=== PATIENT | female | born 1950 ===

== ENCOUNTER 2018-03-03 16:27 | Observation (INO) | payer MEDICARE ==
[2018-03-03 17:22] LABS: BASO % 0.7 % (0.0-2.0); EOS # 0.1 K/uL (0.0-0.7); EOS % 1.5 % (0.0-4.0); HEMOGLOBIN 14.3 g/dL (11.0-16.0); LYMPH # 1.2 K/uL (1.0-4.3); LYMPH % 24.7 % (20.0-40.0); MEAN CELL VOLUME 91.1 fL (81.0-99.0); MEAN CORPUSCULAR HEMOGLOBIN 31.7 pg (27.0-31.0); MEAN CORPUSCULAR HGB CONC 34.8 g/dL (33.0-37.0); MEAN PLATELET VOLUME 10.4 fL (7.2-11.7); MONO # 0.3 K/uL (0.0-0.8); MONO % 5.8 % (0.0-10.0); NEUT # 3.4 K/uL (1.8-7.0); NEUT % 67.3 % (50.0-75.0); NRBC % 0.1 % (0.0-2.0); RBC 4.52 Mil/uL (3.80-5.20); RED CELL DISTRIBUTION WIDTH 13.8 % (11.5-14.5)
[2018-03-03 17:36] LABS: ALB/GLOB RATIO 1.4 (1.0-2.1); ALBUMIN 4.4 g/dL (3.5-5.0); ALT/SGPT 42 U/L (9-52); AST/SGOT 27 U/L (14-36); BLOOD UREA NITROGEN 16 mg/dL (7-17); CALCIUM 9.9 mg/dl (8.6-10.4); GFR AFRICAN-AMERICAN > 60; GFR NON-AFRICAN AMERICAN > 60
--- NOTE | 2018-03-03 18:05 | RAD ---
Chest x-ray single frontal view History: Infiltrate. Comparison: 03/03/2018 Findings: Mild venous congestion. Patchy increased markings at the left lung base. Clinical correlation. Tortuous ectatic aorta. Mild cardiomegaly. Degenerative changes in the spine and shoulders. Impression: Mild venous congestion. Patchy increased markings at the left lung base. Clinical correlation. Tortuous ectatic aorta. Mild cardiomegaly.
--- NOTE | 2018-03-03 19:23 | C.PDOC ---
History Of Present Illness 67 y/o female presents to ED c/o episode of lightheadedness, and dizziness half an hour prior to arrival. Notes she was walking down the steps when she suddenly felt lightheaded and had to sit down. Denies any type of pain, shortness of breath, or fever. Denies recent cardiac work up. Chief Complaint (Nursing): Dizziness/Lightheaded History Per: Patient History/Exam Limitations: no limitations Past Medical History Reviewed: Historical Data, Nursing Documentation, Vital Signs Vital Signs: Last Vital Signs Temp 98.6 F 03/03/18 16:46 Pulse 63 03/03/18 20:22 Resp 16 03/03/18 20:22 BP 143/78 03/03/18 20:22 Pulse Ox 98 03/03/18 20:22 - Medical History PMH: HTN Family History: States: Unknown Family Hx - Social History Hx Alcohol Use: No Hx Substance Use: No - Immunization History Hx Tetanus Toxoid Vaccination: No Hx Influenza Vaccination: No Hx Pneumococcal Vaccination: No Review Of Systems Except As Marked, All Systems Reviewed And Found Negative. Constitutional: Negative for: Fever, Chills Eyes: Negative for: Vision Change Cardiovascular: Positive for: Light Headedness. Negative for: Chest Pain, Palpitations Respiratory: Negative for: Cough, Shortness of Breath Gastrointestinal: Negative for: Nausea, Vomiting, Abdominal Pain Neurological: Positive for: Dizziness. Negative for: Weakness, Numbness, Headache Physical Exam - Physical Exam Appears: Non-toxic, No Acute Distress Skin: Normal Color, Warm, Dry Head: Atraumatic, Normacephalic Eye(s): bilateral: Normal Inspection Oral Mucosa: Moist Neck: Supple Cardiovascular: Rhythm Regular Respiratory: Normal Breath Sounds, No Rales, No Rhonchi, No Wheezing Gastrointestinal/Abdominal: Soft, No Tenderness Extremity: Normal ROM Neurological/Psych: Oriented x3, Normal Speech, Normal Cognition ED Course And Treatment - Laboratory Results Result Diagrams: 03/03/18 17:18 03/03/18 17:18 ECG: Interpreted By Me, Viewed By Me ECG Rhythm: Sinus Bradycardia ECG Interpretation: No Acute Changes Rate From EC (bpm) O2 Sat by Pulse Oximetry: 98 (RA) Pulse Ox Interpretation: Normal Medical Decision Making Medical Decision Making: Plan: Blood work CXR EKG Head CT Meclizine Case discussed with Dr. Toure who agrees upon Tele Obs admission. Disposition - Disposition Disposition Time: 19:00 Condition: STABLE - Clinical Impression Clinical Impression: Dizziness, Near syncope - Scribe Statement The provider has reviewed the documentation as recorded by the Scribe KP All medical record entries made by the Scribe were at my direction and personally dictated by me. I have reviewed the chart and agree that the record accurately reflects my personal performance of the history, physical exam, medical decision making, and the department course for this patient. I have also personally directed, reviewed, and agree with the discharge instructions and disposition.
[2018-03-03 20:16] LABS: PROTHROMBIN TIME 11.3 SECONDS (9.7-12.2)
--- NOTE | 2018-03-03 20:52 | CP.PCM.HP ---
History of Present Illness - History of Present Illness History of Present Illness: COMPREHENSIVE HISTORY & PHYSICAL EXAM Patient is admitted for syncopal episode. HPI Patient had an uneventful day prior to admission. While walking on the street patient suddenly felt weak and tired and had a near syncopal episode patient had no definite seizures. Patient has no previous history of seizures. Patient with history of hypertension and takes medication. There is no history of coronary artery disease severe angina or CHF in the past there is no history of hypercalcemia. PAST HIST. PERSONAL HIST: Smoking. N Alcohol. N Allergy N Travel_- . FAMILY HIST : ROS : Constitutional: Negative for weight change, chills, night sweats, fatigue and usage of assist device. Eyes: Negative for redness, swelling, itching, discharge, vision changes, blurry vision, double vision, glaucoma, cataracts, Ears: Negative for hearing loss, ringing, , tinnitus, vertigo Nose: Negative for rhinorrhea, stuffiness, sniffing, itching, postnasal drip, discoloration, nasal congestion and epistaxis. Throat: Negative for throat clearing, sore throat, hoarseness, difficulty swallowing and difficulty speaking. Respiratory: Negative for cough, , sputum production, chest tightness, wheezing, pleuritic chest pain ,daytime somnolence, chronic cough, hemoptysis, snoring at night, Cardiovascular: Negative for chest pain, palpitations, orthopnea, PND, Edema of legs, leg cramps, angina, claudication, , irregular heartbeat, Neurology: Negative for irritability, muscle weakness, numbness and tingling, seizures, tremors, migraines, slurred speech, memory loss, mood changes, recurrent headaches Gastrointestinal: Negative for difficulty swallowing, diarrhea, constipation, black stools, rectal bleeding, nausea, flatulence, reflux, poor appetite, changes in bowel habits, abdominal pain Genitourinary: Negative for frequent urination, hematuria, discharge, incontinence, urinary retention, frequent UTI, Psychiatric: Negative for depression, anxiety/panic, suicidal tendencies, Musculoskeletal: Negative for swollen joints, back pain, , neck pain, morning stiffness of joints, . Skin: Negative for rash, ulcers, itching, dry skin and pigmented lesions. P/E: Constitutional: Appears stated age and in no apparent distress. Head: Normocephalic. Ears: External ear canals patent without inflammation. Tympanic membranes intact with normal light reflex and landmark. Eyes: Pupils are central, bilaterally equal, symmetrical and reacts to light with normal movements and no icterus or pallor. Nose: External nares are patent. Mucosa is pink Mouth-Throat: Good general appearance and condition. No post-pharyngeal/oropharyngeal erythema and tonsillar hypertrophy. Good dental hygiene. Neck-Lymphatic: Neck is supple with normal ROM, no thyromegaly, lymph nodes or masses. JVD is normal with no carotid bruit. Lungs: Clear to percussion and auscultation with bilateral normal air entry. Cardiovascular: S1 and S2 are normal with no murmurs, gallops and rub. GI Exam: No hepatomegaly. Abdomen is soft and non-tender. No Organomegaly , masses or hernias are evident and bowel sounds are normal and active. Neurology: Higher function and all cranial nerves intact, with no gross motor or sensory deficit. Superficial and deep reflexes are normal with downwards planters. No cerebellar deficit with normal gait. Musculoskeletal: No tender spots with normal curvature of the spine with no swelling or restricted ROM of the small and large joints. Extremities: Homans sign absent. Intact pulses with no pitting edema, calf tenderness or skin color changes. Skin: No rash, eruptions or abnormal skin pigmentation LAB/RADIOLOGY: ASSESMENT : Syncopal episode etiology to be determined. Hypertension PLAN: See orders Present on Admission - Present on Admission Any Indicators Present on Admission: No Past Patient History - Past Social History Smoking Status: Never Smoked - CARDIAC Hx Hypertension: Yes - PSYCHIATRIC Hx Substance Use: No - SURGICAL HISTORY Hx Surgeries: Yes Hx Orthopedic Surgery: Yes - ANESTHESIA Hx Anesthesia: Yes Hx Anesthesia Reactions: No Meds Allergies/Adverse Reactions: Allergies Allergy/AdvReac Type Severity Reaction Status Date / Time No Known Allergies Allergy Verified 03/03/18 16:51 Results - Vital Signs Recent Vital Signs: Last Vital Signs Temp 98.6 F 03/03/18 16:46 Pulse 63 03/03/18 20:22 Resp 16 03/03/18 20:22 BP 143/78 03/03/18 20:22 Pulse Ox 98 03/03/18 20:22 - Labs Result Diagrams: 03/04/18 04:25 03/04/18 04:25 Labs: Laboratory Results - last 24 hr 03/03/18 03/03/18 03/03/18 17:18 17:18 19:55 WBC 5.0 RBC 4.52 Hgb 14.3 Hct 41.2 MCV 91.1 MCH 31.7 H MCHC 34.8 RDW 13.8 Plt Count 153 MPV 10.4 Neut % (Auto) 67.3 Lymph % (Auto) 24.7 [place] % (Auto) 5.8 Eos % (Auto) 1.5 Baso % (Auto) 0.7 Neut # (Auto) 3.4 Lymph # (Auto) 1.2 [place] # (Auto) 0.3 Eos # (Auto) 0.1 Baso # (Auto) 0.0 PT 11.3 INR 1.0 APTT 31 Sodium 143 Potassium 3.7 Chloride 104 Carbon Dioxide 27 Anion Gap 17 BUN 16 Creatinine 0.9 Est GFR ( Amer) > 60 Est GFR (Non-Af Amer) > 60 Random Glucose 124 H Calcium 9.9 Total Bilirubin 0.3 AST 27 ALT 42 Alkaline Phosphatase 51 Troponin I < 0.0120 Total Protein 7.5 Albumin 4.4 Globulin 3.1 Albumin/Globulin Ratio 1.4
[2018-03-04 04:28] LABS: BASO % 0.9 % (0.0-2.0); EOS # 0.1 K/uL (0.0-0.7); EOS % 1.6 % (0.0-4.0); HEMOGLOBIN 13.2 g/dL (11.0-16.0); LYMPH # 1.7 K/uL (1.0-4.3); LYMPH % 33.5 % (20.0-40.0); MEAN CELL VOLUME 90.7 fL (81.0-99.0); MEAN CORPUSCULAR HEMOGLOBIN 30.9 pg (27.0-31.0); MEAN PLATELET VOLUME 10.6 fL (7.2-11.7); MONO # 0.4 K/uL (0.0-0.8); NEUT # 2.9 K/uL (1.8-7.0); NRBC % 0.1 % (0.0-2.0); RBC 4.27 Mil/uL (3.80-5.20); RED CELL DISTRIBUTION WIDTH 13.8 % (11.5-14.5); WHITE BLOOD COUNT 5.1 K/uL (4.8-10.8)
[2018-03-04 05:29] LABS: ALB/GLOB RATIO 1.3 (1.0-2.1); ALBUMIN 3.9 g/dL (3.5-5.0); ALT/SGPT 30 U/L (9-52); AST/SGOT 30 U/L (14-36); BLOOD UREA NITROGEN 18 mg/dL (7-17); CALCIUM 9.1 mg/dl (8.6-10.4); GFR AFRICAN-AMERICAN > 60; GFR NON-AFRICAN AMERICAN > 60
--- NOTE | 2018-03-04 07:10 | CT ---
Date of service: 03/03/2018 PROCEDURE: CT HEAD WITHOUT CONTRAST. HISTORY: Evaluate for intracranial hemorrhage and fracture. Injury. COMPARISON: None available. TECHNIQUE: Axial computed tomography images were obtained through the head/brain without intravenous contrast. Radiation dose: Total exam DLP = 800 MGy-cm. This CT exam was performed using one or more of the following dose reduction techniques: Automated exposure control, adjustment of the mA and/or kV according to patient size, and/or use of iterative reconstruction technique. FINDINGS: HEMORRHAGE: No intracranial hemorrhage. BRAIN: Moderate cerebral volume loss. Scattered focal lucencies in the subcortical and periventricular white matter suggestive for chronic microvascular ischemic change. Right basal ganglia lacunar infarct. VENTRICLES: Unremarkable. No hydrocephalus. CALVARIUM: Unremarkable. PARANASAL SINUSES: Unremarkable as visualized. No significant inflammatory changes. MASTOID AIR CELLS: Unremarkable as visualized. No inflammatory changes. OTHER FINDINGS: None. IMPRESSION: Moderate cerebral volume loss. Chronic microvascular ischemic changes. If focal neurologic deficit persists, consider correlation with MRI. These findings were preliminarily reported at 7:06 p.m. on 03/03/[address] Hector Greene from [facility].
--- NOTE | 2018-03-04 16:15 | CP.PCM.PN ---
Subjective - Date & Time of Evaluation Date of Evaluation: 03/04/18 Time of Evaluation: 16:09 - Subjective Subjective: CHIEF COMPLAINTS TODAY : No further dizziness or near syncopal episodes ROS. HEENT : N. Resp : No cough, wheezing ,pleuritic CP ,or hemoptysis Cardio : No anginal CP, PND, orthopnea, palpitation GI : No abd.pain, n/v ,diarrhea or GI bleeding . SLABBER LIGHT : No headache, vertigo, focal deficit. Musculoskel : No joint swelling , Derm : No rash Psych : Normal affect. Ext : No swelling ,calf pain PE. Pt. is alert awake in no distress. V.S As noted in the chart Head ,ear nose,throat and eyes : Normal. Neck : Supple with normal carotids. Lungs: Clear air entry. Heart : S1 & S2 normal with S4. No murmur. Abd : Soft non tender with normal bowel sounds. Neuro : Moves all ext. with no localized deficit. Ext : No edema with intact pulses.Non tender calves Derm : No rashes or decubitus ulcer. LABS/RADIOLOGY: ASSESSMENT/PLAN : Awaiting cardiac and neuro workup. Objective - Vital Signs/Intake and Output Vital Signs (last 24 hours): Temp Pulse Resp BP Pulse Ox 97.8 F 57 L 18 104/64 95 03/04/18 15:51 03/04/18 15:51 03/04/18 15:51 03/04/18 15:51 03/04/18 15:51 - Medications Medications: Current Medications Heparin Sodium (Porcine) (Heparin) 5,000 units SC Q12 DOROTEO Last Admin: 03/04/18 12:22 Dose: 5,000 units - Labs Labs: 03/04/18 04:25 03/04/18 04:25 PT 11.3 SECONDS (9.7-12.2) 03/03/18 19:55 INR 1.0 03/03/18 19:55 APTT 31 SECONDS (21-34) 03/03/18 19:55
[2018-03-05 01:46] VITALS: RESP 20
--- NOTE | 2018-03-05 14:07 | CP.PCM.PN ---
Subjective - Date & Time of Evaluation Date of Evaluation: 03/05/18 Time of Evaluation: 14:07 - Subjective Subjective: CHIEF COMPLAINTS TODAY : No further dizziness or near syncopal episodes ROS. HEENT : N. Resp : No cough, wheezing ,pleuritic CP ,or hemoptysis Cardio : No anginal CP, PND, orthopnea, palpitation GI : No abd.pain, n/v ,diarrhea or GI bleeding . FILLING MIXER : No headache, vertigo, focal deficit. Musculoskel : No joint swelling , Derm : No rash Psych : Normal affect. Ext : No swelling ,calf pain PE. Pt. is alert awake in no distress. V.S As noted in the chart Head ,ear nose,throat and eyes : Normal. Neck : Supple with normal carotids. Lungs: Clear air entry. Heart : S1 & S2 normal with S4. No murmur. Abd : Soft non tender with normal bowel sounds. Neuro : Moves all ext. with no localized deficit. Ext : No edema with intact pulses.Non tender calves Derm : No rashes or decubitus ulcer. LABS/RADIOLOGY: ASSESSMENT/PLAN : Awaiting cardiac and neuro workup. Objective - Vital Signs/Intake and Output Vital Signs (last 24 hours): Temp Pulse Resp BP Pulse Ox 97.9 F 71 20 101/67 97 03/05/18 08:10 03/05/18 08:10 03/05/18 08:10 03/04/18 23:50 03/05/18 08:10 - Medications Medications: Current Medications Heparin Sodium (Porcine) (Heparin) 5,000 units SC Q12 DOROTEO Last Admin: 03/05/18 10:42 Dose: 5,000 units - Labs Labs: 03/04/18 04:25 03/04/18 04:25 PT 11.3 SECONDS (9.7-12.2) 03/03/18 19:55 INR 1.0 03/03/18 19:55 APTT 31 SECONDS (21-34) 03/03/18 19:55
--- NOTE | 2018-03-05 23:46 | CARD ---
APPROVED REPORT Date of service: 03/04/2018 EKG Measurement Heart [id number] [place] [id number] [id number] <Conclusion> Sinus bradycardia Otherwise normal ECG
--- NOTE | 2018-03-06 09:00 | VASCLAB ---
Date of service: 03/05/2018 PROCEDURE: HISTORY: BRADYCARDIA COMPARISON: None available. TECHNIQUE: Grayscale and duplex Doppler evaluation of the cervical carotid and vertebral arteries were performed. The common carotid, carotid bifurcations and cervical Internal Carotid Artery (ICA) and proximal External Carotid Artery (ECA) were evaluated. The vertebral arteries were evaluated for gross patency and flow direction. Report prepared by Vinod Billy, BS, RVT FINDINGS: RIGHT CAROTID ARTERIES: 1. Common Carotid Artery: No significant focal plaque formation of the right common carotid artery. Maximum Peak Systolic velocity: 48 cm/sec: End-diastolic velocity 16 cm/sec. 2. Carotid Bifurcation: plaque formation. Maximum Peak Systolic velocity: 49 cm/sec: End-diastolic velocity 16 cm/sec. 3. Internal Carotid Artery: Plaque description: 3.1. Proximal Segment: Peak systolic velocity 67 cm/sec: End-diastolic velocity 15 cm/sec - % stenosis 0-15% 3.2. Middle Segment: Peak systolic velocity 45 cm/sec: End-diastolic velocity 16 cm/sec - % stenosis 0-15% 3.3. Distal Segment: Peak systolic velocity 40 cm/sec: End-diastolic velocity 16 cm/sec - % stenosis 0-15% 4. External Carotid Artery: No significant focal plaque formation. Peak systolic velocity 53 cm/sec 5. ICA/CCA Ratio: 1.4 LEFT CAROTID ARTERIES: 1. Common Carotid Artery: No significant focal plaque formation of the left common carotid artery. Maximum Peak Systolic velocity: 76 cm/sec: End-diastolic velocity 24 cm/sec. 2. Carotid Bifurcation: plaque formation. Maximum Peak Systolic velocity: 62 cm/sec: End-diastolic velocity 15 cm/sec. 3. Internal Carotid Artery: Plaque description: 3.1. Proximal Segment: Peak systolic velocity 60 cm/sec: End-diastolic velocity 17 cm/sec - % stenosis 0-15% 3.2. Middle Segment: Peak systolic velocity 51 cm/sec: End-diastolic velocity 17 cm/sec - % stenosis 0-15% 3.3. Distal Segment: Peak systolic velocity 35 cm/sec: End-diastolic velocity 13 cm/sec - % stenosis 0-15% 4. External Carotid Artery: No significant focal plaque formation. Peak systolic velocity 59 cm/sec 5. ICA/CCA Ratio: 0.8 VERTEBRAL ARTERIES: 1. Right Vertebral Artery: The right vertebral artery flow direction is antegrade. 2. Left Vertebral Artery: The left vertebral artery flow direction is antegrade. OTHER FINDINGS: 1. Right Brachial Blood pressure: 144 mmHg. 2. Left Brachial Blood pressure: 140 mmHg. IMPRESSION: RIGHT: Duplex scan does not suggest hemodynamically significant stenosis of the right extracranial carotid arteries. LEFT: Duplex scan does not suggest hemodynamically significant stenosis of the left extracranial carotid arteries.
--- NOTE | 2018-03-06 13:14 | CP.PCM.DIS ---
Provider - Provider Date of Admission: 03/03/18 19:27 Attending physician: Ricki Toure MD Time Spent in preparation of Discharge (in minutes): 35 Hospital Course - Lab Results Lab Results: Most Recent Lab Values WBC 5.1 K/uL (4.8-10.8) 03/04/18 04:25 RBC 4.27 Mil/uL (3.80-5.20) 03/04/18 04:25 Hgb 13.2 g/dL (11.0-16.0) 03/04/18 04:25 Hct 38.7 % (34.0-47.0) 03/04/18 04:25 MCV 90.7 fL (81.0-99.0) 03/04/18 04:25 MCH 30.9 pg (27.0-31.0) 03/04/18 04:25 MCHC 34.0 g/dL (33.0-37.0) 03/04/18 04:25 RDW 13.8 % (11.5-14.5) 03/04/18 04:25 Plt Count 133 K/uL (130-400) 03/04/18 04:25 MPV 10.6 fL (7.2-11.7) 03/04/18 04:25 Neut % (Auto) 57.0 % (50.0-75.0) 03/04/18 04:25 Lymph % (Auto) 33.5 % (20.0-40.0) 03/04/18 04:25 [place] % (Auto) 7.0 % (0.0-10.0) 03/04/18 04:25 Eos % (Auto) 1.6 % (0.0-4.0) 03/04/18 04:25 Baso % (Auto) 0.9 % (0.0-2.0) 03/04/18 04:25 Neut # (Auto) 2.9 K/uL (1.8-7.0) 03/04/18 04:25 Lymph # (Auto) 1.7 K/uL (1.0-4.3) 03/04/18 04:25 [place] # (Auto) 0.4 K/uL (0.0-0.8) 03/04/18 04:25 Eos # (Auto) 0.1 K/uL (0.0-0.7) 03/04/18 04:25 Baso # (Auto) 0.0 K/uL (0.0-0.2) 03/04/18 04:25 PT 11.3 SECONDS (9.7-12.2) 03/03/18 19:55 INR 1.0 03/03/18 19:55 APTT 31 SECONDS (21-34) 03/03/18 19:55 Sodium 142 mmol/L (132-148) 03/04/18 04:25 Potassium 4.4 mmol/L (3.6-5.2) 03/04/18 04:25 Chloride 105 mmol/L (98-107) 03/04/18 04:25 Carbon Dioxide 30 mmol/L (22-30) 03/04/18 04:25 Anion Gap 11 (10-20) 03/04/18 04:25 BUN 18 mg/dL (7-17) H 03/04/18 04:25 Creatinine 0.7 mg/dL (0.7-1.2) 03/04/18 04:25 Est GFR ( Amer) > 60 03/04/18 04:25 Est GFR (Non-Af Amer) > 60 03/04/18 04:25 POC Glucose (mg/dL) 126 mg/dL (65-110) H 03/03/18 16:41 Random Glucose 98 mg/dL (65-105) 03/04/18 04:25 Calcium 9.1 mg/dl (8.6-10.4) 03/04/18 04:25 Total Bilirubin 0.7 mg/dL (0.2-1.3) 03/04/18 04:25 AST 30 U/L (14-36) 03/04/18 04:25 ALT 30 U/L (9-52) 03/04/18 04:25 Alkaline Phosphatase 32 U/L (38-126) L D 03/04/18 04:25 Troponin I < 0.0120 ng/mL (0.00-0.120) 03/05/18 07:15 Total Protein 7.0 g/dL (6.3-8.3) 03/04/18 04:25 Albumin 3.9 g/dL (3.5-5.0) 03/04/18 04:25 Globulin 3.1 gm/dL (2.2-3.9) 03/04/18 04:25 Albumin/Globulin Ratio 1.3 (1.0-2.1) 03/04/18 04:25 TSH 3rd Generation 3.56 mIU/L (0.46-4.68) 03/04/18 04:25 - Hospital Course Hospital Course: Patient had an uneventful day prior to admission. While walking on the street patient suddenly felt weak and tired and had a near syncopal episode patient had no definite seizures. Patient has no previous history of seizures. Patient with history of hypertension and takes medication. There is no history of coronary artery disease severe angina or CHF in the past there is no history of hypercalcemia. CAT scan of the head was negative for any pathology. MRI of the brain was not performed because of severe claustrophobia. Patient refused to undergo MRI and opted for outpatient open MRI.. Cardiac workup was negative. Carotid Dopplers was reported normal. Due to low risk of recurrence of syncope with no risk factors patient will be discharged and will continue cardiac and MRI of the brain as outpatient. Discharge Plan - Follow Up Plan Condition: STABLE Disposition: HOME/ ROUTINE
[2018-03-06 15:48] VITALS: BP 148/70; PULSE 71; TEMP 98.4; O2SAT 96
--- NOTE | 2018-03-06 16:48 | CARD ---
APPROVED REPORT Date of service: 03/03/2018 EKG Measurement Heart [id number] [place] 122P60 [id number] <Conclusion> Sinus bradycardia Otherwise normal ECG
== END 2018-03-06 20:51 | disposition home or self-care (01) ==
LOC: C.ER 16:27 → C.9E 19:27 → C.5S 03-04 08:39 → C.9E 03-04 08:41 → C.6T 03-04 11:50
PROVIDERS: ADMIT Internal Medicine Cardiovascular Disease; ATTEND Internal Medicine Cardiovascular Disease
DX: R42 Dizziness and giddiness (principal); I10 Essential (primary) hypertension; F40.240 Claustrophobia; I65.29 Occlusion and stenosis of unspecified carotid artery
CPT/HCPCS: 36415; 70450; 71045; 80053; 82948; 84443; 84484; 85025; 85610; 85730; 93005; 93880; 95812; 96372; 97116; 97161; 99285; G0378; G8978; G8979; G8980; J1644

== ENCOUNTER 2018-09-07 16:37 | Outpatient (CLI) | payer MEDICARE | END 2018-09-07 16:38 | disposition home or self-care (01) | LOC: C.MAMMO 16:37 | DX: Z12.31 Encounter for screening mammogram for malignant neoplasm of breast (principal) ==